=== PATIENT | female | born 1960 | race Asian ===

== ENCOUNTER 2017-07-19 20:38 | Emergency (ER) | payer OTHER ==
[~2017-07-19] VITALS: Ht 165.1 cm; Wt 61.2 kg
[2017-07-21 06:52] LABS: HCV Non Reactive (NR)
== END 2017-07-19 21:31 | disposition home or self-care (01) ==
LOC: ER 20:38
PROVIDERS: Physician Assistant
DX: S61.231A Puncture wound without foreign body of left index finger without damage to nail, initial encounter (principal); W46.0XXA Contact with hypodermic needle, initial encounter
CPT/HCPCS: 36415; 84460; 86703; 86706; 86803; 87340; 87389; 99283

== ENCOUNTER → 2017-08-30 | Outpatient (CLI) | payer OTHER ==
[2017-09-03 06:08] LABS: HIV SCREEN 4TH GENERATION WRFX Non Reactive (Non Reactive)
== END ==
LOC: LAB SHORT 13:12 → LAB EV 13:12
PROVIDERS: Family Medicine
DX: Z20.9 Contact with and (suspected) exposure to unspecified communicable disease (principal)
CPT/HCPCS: 86803; 87389

== ENCOUNTER → 2017-10-31 | Outpatient (CLI) | payer BC ==
[2017-11-02 06:14] LABS: HIV SCREEN 4TH GENERATION WRFX Non Reactive (Non Reactive)
== END | disposition home or self-care (01) ==
LOC: LAB SHORT 14:06 → LAB EV 14:06
PROVIDERS: Family Medicine
DX: Z20.9 Contact with and (suspected) exposure to unspecified communicable disease (principal)
CPT/HCPCS: 86803; 87389